=== PATIENT | male | born 1940 | race Caucasian/White ===

== ENCOUNTER 2021-02-26 07:58 | Observation (INO) | payer MEDICARE, BC ==
[2021-02-26] MEDS ORDERED: Aspirin Chewable 81 MG TAB ONE (08:23)
[2021-02-26] MEDS ORDERED: Nitroglycerin 0.4 MG TAB 1 EACH ONE ×2 (08:24→09:01)
[2021-02-26 08:41] LABS: Actual Bicarbonate (HCO3v) 20 mEq/L (22-28); Base Excess -4.2 mEq/L (-2.0 to +3.0); Calcium, Ionized (venous) 1.13 mmol/L (1.16-1.32); Chloride (VBG) 107 mmol/L (98-106); Potassium (VBG) 3.84 mmol/L (3.70-5.30); Puncture Site Other Site; RapidComm Collect By CBN; Sodium 139.6 mmol/L (133-146); pH (venous) 7.39 (7.32-7.43)
[2021-02-26 08:55] LABS: #Eosinphils 0.1 10x3/uL (0.0-0.5); #Monocytes 0.6 10x3/uL (0.0-1.1); #Neutrophils 3.6 10x3/uL (1.5-8.4); %Basophils 0.4 % (0.0-2.0); %Eosinophils 1.1 % (0.0-6.0); %Lymphocytes 23.6 % (18.0-47.0); %Monocytes 10.2 % (0.0-10.0); %Neutrophils 64.2 % (40.0-75.0); Hemoglobin 12.5 g/dL (13.5-17.5); Mean Corpuscular HGB CONC 32.6 g/dL (32.0-36.0); Mean Corpuscular Hemoglobin 34.6 pg (27.0-33.0); Mean Corpuscular Volume 106.1 fl (81.2-95.1); Mean Platelet Volume 10.7 fl (7.4-10.4); Platelet Count 173 10x3/uL (150-450); Red Blood Cell (RBC) Count 3.61 10x6/uL (4.32-5.72); White Blood Cell (WBC) Count 5.6 10x3/uL (3.5-10.5)
[2021-02-26 09:05] LABS: ALT (SGPT) 20 U/L (8-55); AST (SGOT) 23 U/L (5-34); Albumin 4.2 g/dL (3.4-4.8); Alkaline Phosphatase 84 U/L (40-110); Anion Gap 11 mmol/L (10-20); BUN (Urea Nitrogen) 18 mg/dL (8.4-25.7); Bilirubin, Total 1.1 mg/dL (0.2-1.2); Calc. Creatinine Clearance 0 mL/min (70-130); Calcium 8.5 mg/dL (7.8-10.44); Carbon Dioxide 21 mmol/L (23-31); Chloride 112 mmol/L (98-107); Globulin 2.4 g/dL (2.4-3.5); Glucose 112 mg/dL (83-110); Lipase 20 U/L (8-78); Potassium 3.9 mmol/L (3.5-5.1); Protein, Total 6.6 g/dL (5.8-8.1); Sodium 140 mmol/L (136-145)
[2021-02-26 09:32] LABS: Macrocytosis SLIGHT = 6-15 cells (100X) (0-5/hpf); Platelet Morphology Comment Appears Adequate
[2021-02-26 09:36] LABS: SARS-CoV-2 NAA Rapid Test Not Detected (NotDetected)
[2021-02-26] MEDS ORDERED: Morphine 4 MG/ML VIAL ONE (10:09)
[2021-02-26] MEDS ORDERED: Nitroglycerin 0.4 MG TAB (25 Tab Bottle) SL PRN ×2 (10:13→10:42)
[2021-02-26] MEDS ORDERED: Ondansetron ODT 4 MG TAB PO PRN (10:14)
[2021-02-26] MEDS ORDERED: Senokot S 8.6-50 MG TAB PO PRN (10:14)
[2021-02-26] MEDS ORDERED: Acetaminophen 325 MG TAB PO PRN (10:14)
[2021-02-26] MEDS ORDERED: Ketorolac Tromethamine 10 MG TAB PO PRN (10:40)
[2021-02-26 11:53] VITALS: BMI 23.8
[2021-02-26 12:34] LABS: Magnesium 2.2 mg/dL (1.6-2.6)
[2021-02-26 12:41] LABS: Troponin I Less than 0.010 ng/mL (< 0.028)
[2021-02-26] MEDS ORDERED: Fluticasone Propionate Nasal Spray 16 gm Bottle NASAL PRN (14:14)
[2021-02-26 15:41] LABS: Troponin I Less than 0.010 ng/mL (< 0.028)
[2021-02-26] MEDS ORDERED: Tamsulosin HCl 0.4 MG CAP PO SCH (21:00)
[2021-02-27] MEDS ORDERED: Gabapentin 100 MG CAP PO SCH (00:15)
[2021-02-27 05:34] LABS: #Eosinphils 0.1 10x3/uL (0.0-0.5); #Monocytes 0.7 10x3/uL (0.0-1.1); #Neutrophils 5.1 10x3/uL (1.5-8.4); %Basophils 0.3 % (0.0-2.0); %Eosinophils 1.5 % (0.0-6.0); %Lymphocytes 19.2 % (18.0-47.0); %Monocytes 9.8 % (0.0-10.0); %Neutrophils 68.7 % (40.0-75.0); Hemoglobin 11.6 g/dL (13.5-17.5); Mean Corpuscular Hemoglobin 35.5 pg (27.0-33.0); Mean Corpuscular Volume 107.3 fl (81.2-95.1); Mean Platelet Volume 10.9 fl (7.4-10.4); Platelet Count 166 10x3/uL (150-450); RBC Distribution Width 12.3 % (11.5-14.5); Red Blood Cell (RBC) Count 3.27 10x6/uL (4.32-5.72); White Blood Cell (WBC) Count 7.4 10x3/uL (3.5-10.5)
[2021-02-27 05:36] LABS: Anion Gap 12 mmol/L (10-20); BUN (Urea Nitrogen) 19 mg/dL (8.4-25.7); Calc. Creatinine Clearance 76 mL/min (70-130); Calcium 8.3 mg/dL (7.8-10.44); Carbon Dioxide 22 mmol/L (23-31); Cardiac Risk 4.3 (Less than 4.5); Chloride 109 mmol/L (98-107); Cholesterol 125 mg/dl (< 200 Desired); Glucose 107 mg/dL (83-110); HDL Cholesterol 29 mg/dL (>60 Neg Risk); LDL Cholesterol, Calculated 85 mg/dL; Potassium 3.8 mmol/L (3.5-5.1); Sodium 139 mmol/L (136-145); Triglycerides 55 mg/dL (Less than 150)
[2021-02-27] MEDS ORDERED: Ipratropium Bromide 2.5 ml Neb NEB SCH (07:00)
[2021-02-27 08:41] VITALS: BP 150/75; TEMP 97.4
[2021-02-27] MEDS ORDERED: Loratadine 10 MG TAB PO SCH (09:00)
[2021-02-27] MEDS ORDERED: Aspirin Chewable 81 MG TAB PO SCH (09:00)
== END 2021-02-27 09:20 | disposition home or self-care (01) ==
LOC: CSHERS 07:58 → CSHTELE 11:00 → INTOOBSV 11:00
PROVIDERS: ADMIT Family Medicine; ATTEND Nurse Practitioner Family
DX: R07.89 Other chest pain (principal); R20.2 Paresthesia of skin; R20.0 Anesthesia of skin; I16.0 Hypertensive urgency; D53.9 Nutritional anemia, unspecified; J44.9 Chronic obstructive pulmonary disease, unspecified; R09.02 Hypoxemia; N40.0 Benign prostatic hyperplasia without lower urinary tract symptoms; K21.9 Gastro-esophageal reflux disease without esophagitis; Z96.21 Cochlear implant status; Z99.81 Dependence on supplemental oxygen; Z20.822 Contact with and (suspected) exposure to COVID-19; Z79.899 Other long term (current) drug therapy
CPT/HCPCS: 71045; 71275; 72040; 73030; 80048; 80053; 80061; 82607; 82746; 82805; 83690; 83735; 83880; 84484 ×2; 85025 ×2; 93005; 94640; 96375; G0378 ×3; U0002; 36415; 93010; J2270

== ENCOUNTER 2022-04-04 08:23 | Outpatient (CLI) | payer MEDICARE, BC | END 2022-04-04 08:24 | disposition home or self-care (01) | LOC: CSHCT 08:23 | PROVIDERS: ATTEND Family Medicine | DX: R20.2 Paresthesia of skin (principal); M25.511 Pain in right shoulder; M19.011 Primary osteoarthritis, right shoulder; M85.611 Other cyst of bone, right shoulder; M25.711 Osteophyte, right shoulder; M62.511 Muscle wasting and atrophy, not elsewhere classified, right shoulder ==

== ENCOUNTER 2022-04-30 10:36 | Outpatient (CLI) | payer MEDICARE, BC | END 2022-04-30 10:37 | disposition home or self-care (01) | LOC: CSHCT 10:36 | PROVIDERS: ATTEND Orthopaedic Surgery | DX: M54.12 Radiculopathy, cervical region (principal); M47.812 Spondylosis without myelopathy or radiculopathy, cervical region; M48.02 Spinal stenosis, cervical region | CPT/HCPCS: 72125 ==